=== PATIENT | female | born 1985 | race Caucasian/White ===

== ENCOUNTER 2022-03-08 12:05 | Emergency (ER) | payer OTHER ==
[~2022-03-08] VITALS: Ht 175.2 cm; Wt 77.1 kg
== END 2022-03-08 14:31 | disposition left against medical advice (07) ==
LOC: ED 12:05
DX: S01.01XA Laceration without foreign body of scalp, initial encounter (principal); Y04.0XXA Assault by unarmed brawl or fight, initial encounter; Y93.89 Activity, other specified; Y92.89 Other specified places as the place of occurrence of the external cause; Y99.9 Unspecified external cause status

== ENCOUNTER → 2022-08-03 | Outpatient (CLI) | payer OTHER | END | disposition home or self-care (01) | LOC: RAD 10:33 | PROVIDERS: ATTEND Nurse Practitioner Primary Care | DX: S39.92XD Unspecified injury of lower back, subsequent encounter (principal); R10.31 Right lower quadrant pain; R82.90 Unspecified abnormal findings in urine; R10.2 Pelvic and perineal pain; X58.XXXD Exposure to other specified factors, subsequent encounter ==

== ENCOUNTER → 2022-08-25 | Outpatient (CLI) | payer OTHER | END | disposition home or self-care (01) | LOC: US 08-17 09:00 | PROVIDERS: ATTEND Nurse Practitioner Primary Care | DX: M25.861 Other specified joint disorders, right knee (principal); N63.12 Unspecified lump in the right breast, upper inner quadrant; N64.4 Mastodynia ==

== ENCOUNTER → 2022-09-24 | Outpatient (CLI) | payer OTHER | END | disposition home or self-care (01) | LOC: RAD 08:19 | PROVIDERS: ATTEND Orthopaedic Surgery | DX: M17.11 Unilateral primary osteoarthritis, right knee (principal); R10.2 Pelvic and perineal pain ==

== ENCOUNTER → 2023-08-08 | Outpatient (CLI) | payer OTHER | END | disposition home or self-care (01) | LOC: RAD 14:19 | PROVIDERS: ATTEND Nurse Practitioner | DX: R05.9 Cough, unspecified (principal) ==

== ENCOUNTER 2023-11-14 17:15 | Emergency (ER) | payer OTHER ==
[~2023-11-14] VITALS: Ht 175.2 cm; Wt 86.2 kg
[2023-11-14 17:51] LABS: BASO % 0.4 % (0.0-1.0); EOS # 0.3 10*3/uL (0.0-0.4); EOS % 4.8 % (1.0-4.0); HEMATOCRIT 37.8 % (37.0-47.0); LYMPH # 2.7 10*3/uL (1.3-4.4); LYMPH % 38.6 % (27.0-41.0); MEAN CELL VOLUME 89.8 fl (81.0-99.0); MEAN CORPUSCULAR HGB 27.3 pg (27.0-31.0); MEAN CORPUSCULAR HGB CONC 30.4 g/dl (33.0-37.0); MEAN PLATELET VOLUME 9.6 fl (9.6-12.3); MONO # 0.4 10*3/uL (0.1-1.0); MONO % 5.2 % (3.0-9.0); NEUT # 3.5 10*3/uL (2.3-7.9); NEUT % 50.9 % (47.0-73.0); PLATELET COUNT AUTOMATED 284 10*3/uL (130-400); RED BLOOD COUNT 4.21 10*6/uL (4.10-5.10); RED CELL DISTRI WIDTH 13.7 % (0-14.5); WHITE BLOOD COUNT 6.9 10*3/uL (4.8-10.8)
[2023-11-14 18:09] LABS: BUN 9 mg/dl (9-23); CHLORIDE 106 mmol/L (98-107); POTASSIUM 3.8 mmol/L (3.4-5.1)
[2023-11-14] MEDS ORDERED: AMOX-CLAV 875-1 EACH PO (18:18)
[2023-11-14] MEDS ORDERED: Amoxicillin/Clavulanate Pota 875 MG TAB PO ONE (18:25)
== END 2023-11-14 19:11 | disposition home or self-care (01) ==
LOC: ED 17:15
PROVIDERS: Nurse Practitioner Family
DX: J32.9 Chronic sinusitis, unspecified (principal); Z88.8 Allergy status to other drugs, medicaments and biological substances

== ENCOUNTER → 2024-05-30 | Outpatient (CLI) | payer OTHER ==
[~2024-05-30] MED LIST: AMOX-CLAV 875-1 EACH PO
== END | disposition home or self-care (01) ==
LOC: LAB 14:01
PROVIDERS: ATTEND Internal Medicine Critical Care Medicine
DX: R40.0 Somnolence (principal); G25.81 Restless legs syndrome; R41.840 Attention and concentration deficit; Z68.28 Body mass index [BMI] 28.0-28.9, adult; Z87.891 Personal history of nicotine dependence

== ENCOUNTER 2024-08-10 12:45 | Emergency (ER) | payer OTHER ==
[~2024-08-10] VITALS: Ht 175.2 cm; Wt 86.2 kg
[2024-08-10] MEDS ORDERED: GABAPENTIN800 MG PO (13:07)
[2024-08-10] MEDS ORDERED: LEXAPRO10 MG PO (13:08)
[2024-08-10] MEDS ORDERED: DOXEPIN HCL10 MG PO (13:08)
[2024-08-10] MEDS ORDERED: ATOMOXETINE HCL60 MG PO (13:08)
[2024-08-10] MEDS ORDERED: REXULTI1 MG PO (13:08)
[2024-08-10] MEDS ORDERED: B121000 MCG/1 IM (13:09)
[2024-08-10] MEDS ORDERED: STRATTERA60 MG PO (13:09)
[2024-08-10] MEDS ORDERED: DICLOFENAC SOD50 MG PO (13:09)
[2024-08-10] MEDS ORDERED: AIMOVIG AU140 MG/1 M SQ (13:09)
[2024-08-10] MEDS ORDERED: PREGABALIN150 MG PO (13:10)
[2024-08-10] MEDS ORDERED: TIZANIDINE HCL4 MG PO (13:10)
[2024-08-10] MEDS ORDERED: diphenhydrAMINE hydrochloride 50 MG/ML VIAL IM ONE (15:00)
[2024-08-10] MEDS ORDERED: Ketorolac Tromethamine 30 MG/ML VIAL IM ONE (15:00)
[2024-08-10] MEDS ORDERED: Ondansetron Hydrochloride 4 MG TAB SL ONE (15:00)
[2024-08-10] MEDS ORDERED: AZITHROMYCIN 250 MG TAB PO ONE (15:00)
[2024-08-10] MEDS ORDERED: Ondansetron4 MG SL (15:31)
[2024-08-10] MEDS ORDERED: AVPAK AZITHROM250 M1 PO (15:31)
== END 2024-08-10 15:40 | disposition home or self-care (01) ==
LOC: ED 12:45
DX: J40 Bronchitis, not specified as acute or chronic (principal); Z20.822 Contact with and (suspected) exposure to COVID-19; R11.0 Nausea; F31.9 Bipolar disorder, unspecified; F41.9 Anxiety disorder, unspecified; Z88.8 Allergy status to other drugs, medicaments and biological substances; Z90.49 Acquired absence of other specified parts of digestive tract; Z90.710 Acquired absence of both cervix and uterus; Z98.890 Other specified postprocedural states; Z87.891 Personal history of nicotine dependence

== ENCOUNTER 2024-09-01 19:16 | Emergency (ER) | payer OTHER ==
[~2024-09-01] VITALS: Ht 175.2 cm; Wt 86.2 kg
[~2024-09-01 19:16] MED LIST changes: +AIMOVIG AU140 MG/1 M SQ; +ATOMOXETINE HCL60 MG PO; +AVPAK AZITHROM250 M1 PO; +B121000 MCG/1 IM; +DICLOFENAC SOD50 MG PO; +DOXEPIN HCL10 MG PO; +GABAPENTIN800 MG PO; +LEXAPRO10 MG PO; +Ondansetron4 MG SL; +PREGABALIN150 MG PO; +REXULTI1 MG PO; +STRATTERA60 MG PO; +TIZANIDINE HCL4 MG PO
[2024-09-01] MEDS ORDERED: SODIUM CHLORIDE 0.9% 1,000 ML IV ONE (19:40)
[2024-09-01 20:04] LABS: BASO # 0.1 10*3/uL (0.0-0.1); BASO % 0.9 % (0.0-1.0); EOS # 0.2 10*3/uL (0.0-0.4); EOS % 2.7 % (1.0-4.0); HEMATOCRIT 39.4 % (37.0-47.0); MEAN CELL VOLUME 92.5 fl (81.0-99.0); MEAN CORPUSCULAR HGB 29.1 pg (27.0-31.0); MEAN CORPUSCULAR HGB CONC 31.5 g/dl (33.0-37.0); MEAN PLATELET VOLUME 9.9 fl (9.6-12.3); MONO # 0.4 10*3/uL (0.1-1.0); NEUT # 3.2 10*3/uL (2.3-7.9); NEUT % 45.1 % (47.0-73.0); PLATELET COUNT AUTOMATED 263 10*3/uL (130-400); RED BLOOD COUNT 4.26 10*6/uL (4.10-5.10)
[2024-09-01 20:24] LABS: BUN 11 mg/dl (9-23); CHLORIDE 107 mmol/L (98-107); POTASSIUM 4.1 mmol/L (3.4-5.1)
[2024-09-01] MEDS ORDERED: PREDNISONE20 M1 PO (20:48)
[2024-09-01] MEDS ORDERED: AMOX-CLAV 875-1 EACH PO (20:48)
[2024-09-01] MEDS ORDERED: methylPREDNISolone sod succ 125 MG VIAL IV ONE (20:50)
[2024-09-01] MEDS ORDERED: Amoxicillin/Clavulanate Pota 875 MG TAB PO ONE (20:50)
== END 2024-09-01 21:07 | disposition home or self-care (01) ==
LOC: ED 19:16
PROVIDERS: Nurse Practitioner Family
DX: J98.4 Other disorders of lung (principal); Z20.822 Contact with and (suspected) exposure to COVID-19; F31.9 Bipolar disorder, unspecified; F41.9 Anxiety disorder, unspecified; Z88.8 Allergy status to other drugs, medicaments and biological substances; Z90.49 Acquired absence of other specified parts of digestive tract; Z90.710 Acquired absence of both cervix and uterus; Z98.890 Other specified postprocedural states

== ENCOUNTER → 2024-10-09 | Outpatient (CLI) | payer OTHER ==
[~2024-10-09] MED LIST changes: +PREDNISONE20 M1 PO
== END | disposition home or self-care (01) ==
LOC: RAD 15:46
PROVIDERS: ATTEND Nurse Practitioner
DX: R05.2 Subacute cough (principal); R06.02 Shortness of breath

== ENCOUNTER → 2024-12-03 | Outpatient (CLI) | payer OTHER ==
[2024-12-04 15:07] LABS: BETA-2 GLYCOPROTEIN I AB,IGA 12 (0-25)
[2024-12-05 03:06] LABS: ANTI-THROMBIN III ACTIVITY 124 % (75-135); PROTEIN S - FUNCTIONAL 93 % (63-140)
== END | disposition home or self-care (01) ==
LOC: LAB 12:26
PROVIDERS: ATTEND Psychiatry & Neurology Neurology
DX: H53.8 Other visual disturbances (principal); R51.9 Headache, unspecified; G93.0 Cerebral cysts

== ENCOUNTER 2025-02-01 17:14 | Emergency (ER) | payer OTHER ==
[~2025-02-01] VITALS: Wt 88.5 kg
[2025-02-01] MEDS ORDERED: Albuterol Sulf/Ipratropium 3 ML VIAL NEB ONE (18:10)
[2025-02-01] MEDS ORDERED: methylPREDNISolone sod succ 125 MG VIAL IV ONE (18:10)
[2025-02-01 18:24] LABS: BASO # 0.1 10*3/uL (0.0-0.1); BASO % 0.3 % (0.0-1.0); EOS # 0.5 10*3/uL (0.0-0.4); EOS % 3.1 % (1.0-4.0); HEMATOCRIT 37.1 % (37.0-47.0); MEAN CELL VOLUME 90.5 fl (81.0-99.0); MEAN CORPUSCULAR HGB 28.8 pg (27.0-31.0); MEAN CORPUSCULAR HGB CONC 31.8 g/dl (33.0-37.0); MEAN PLATELET VOLUME 9.3 fl (9.6-12.3); MONO # 0.6 10*3/uL (0.1-1.0); MONO % 4.4 % (3.0-9.0); NEUT # 11.5 10*3/uL (2.3-7.9); NEUT % 78.1 % (47.0-73.0); PLATELET COUNT AUTOMATED 268 10*3/uL (130-400); RED CELL DISTRI WIDTH 14.4 % (0-14.5); WHITE BLOOD COUNT 14.7 10*3/uL (4.8-10.8)
[2025-02-01 18:38] LABS: BUN 13 mg/dl (9-23); CHLORIDE 106 mmol/L (98-107); POTASSIUM 3.7 mmol/L (3.4-5.1)
[2025-02-01] MEDS ORDERED: methylPREDNISolone sod succ 125 MG VIAL IM ONE (19:20)
[2025-02-01] MEDS ORDERED: AVPAK AZITHROM250 M1 PO (20:36)
[2025-02-01] MEDS ORDERED: PREDNISONE20 M1 PO (20:36)
[2025-02-01] MEDS ORDERED: AZITHROMYCIN 250 MG TAB PO ONE (20:40)
== END 2025-02-01 20:42 | disposition home or self-care (01) ==
LOC: ED 17:14
PROVIDERS: Nurse Practitioner Family
DX: J40 Bronchitis, not specified as acute or chronic (principal); F41.9 Anxiety disorder, unspecified; F31.9 Bipolar disorder, unspecified; F17.290 Nicotine dependence, other tobacco product, uncomplicated; Z88.8 Allergy status to other drugs, medicaments and biological substances; Z79.899 Other long term (current) drug therapy; Z90.49 Acquired absence of other specified parts of digestive tract; Z90.710 Acquired absence of both cervix and uterus